=== PATIENT | male | born 1965 | race Caucasian/White ===

== ENCOUNTER → 2017-06-23 | Day surgery (SDC) | payer BC ==
[~2017-06-23] MED LIST: PANTOPRAZOLE SO40 MG PO; PROTONIX PO
--- NOTE | ~2017-06-23 | OR ---
Unit #: [id number] #: [id number] Patient: NORMA ROSADO [id number] [address] [place], [place] [address] [id number] O MR#: [id number] NAME: NORMA ROSADO ROOM: Date of Procedure: 06/23/2017 Admission Date: 06/23/2017 Surgeon: Norman Tony M.D. : 1965 Attending Physician: Norman Tony M.D. OPERATIVE REPORT PREOPERATIVE DIAGNOSES Noncardiac chest pain, epigastric pain, and postprandial dyspepsia. PROCEDURES PERFORMED Upper gastrointestinal endoscopy. POSTOPERATIVE DIAGNOSIS Completely normal examination up to third part of duodenum. RECOMMENDATIONS The patient is feeling much better on once a day Protonix. He was advised to continue the same medication and will be followed up in the office in 3 months' time. It is noteworthy, his bloating is also better on Protonix. SEDATION USED MAC. DESCRIPTION OF PROCEDURE Following detailed explanation of the potential risks and complications of an upper endoscopy, namely perforation, bleeding, and complications related to sedation, the patient was brought to GI lab and laid in the left lateral decubitus position. Lubricated tip of the Olympus video upper endoscope was passed through the bite block into the proximal esophagus under direct vision. The entire esophageal mucosa was examined and appeared normal. Z-line was nicely demarcated, there being no esophagitis or hiatus hernia. The scope was then advanced into the gastric cavity and the latter was insufflated. Mucosa of the fundus, body, and antrum examined and appeared unremarkable. Pylorus was intubated with visualization of the normal duodenal bulb and second and third part of duodenum. Upon withdrawal and retroflexion, incisura, cardia, and greater curve examined and no additional findings noted. The scope was then withdrawn in the distal esophagus. The entire esophageal mucosa was examined all the way up to pharynx. No additional findings noted. The patient tolerated the procedure without any postprocedure complications. Dictated by... Dawson Dempsey/seferino Unit #: [id number] #: [id number] Patient: NORMA ROSADO TD: 06/23/2017 13:46 JOB #: [id number] CC: Cely Jimenez A.P.R.N. OPERATIVE REPORT Page 1 of 1 X Norman Tony MD PROCEDURE OPERATIVE NOTE
== END | disposition home or self-care (01) ==
LOC: COPS 08:39
DX: R10.13 Epigastric pain (principal); R07.89 Other chest pain; Z87.891 Personal history of nicotine dependence; Z98.890 Other specified postprocedural states
CPT/HCPCS: J2250